=== PATIENT | female | born 1995 | race African-American/Black ===

== ENCOUNTER 2017-05-18 03:32 | Emergency (ER) | payer OTHER, MEDICAID ==
[~2017-05-18] VITALS: Ht 167.6 cm; Wt 53.1 kg
[~2017-05-18 03:32] MED LIST: ALBUPOW26; PREN-96 PO
[2017-05-18 04:52] LABS: Urine Bacteria NONE SEEN /hpf (None Seen); Urine Blood 3+ /uL (Negative); Urine WBC 388 /hpf (0 - 5)
[2017-05-18 04:53] LABS: Urine Specific Gravity 1.021 (1.001-1.035)
[2017-05-18 05:00] LABS: Basophils # (auto) 0 uL; Basophils % (auto) 0.5 % (0.0-2.0); Eosinophils # (auto) 0.6 uL; Eosinophils % (auto) 6.9 % (0.0-7.0); Hematocrit 35.5 % (36.0-46.0); Hemoglobin 11.6 g/dL (12.2-16.2); Lymphocytes # (auto) 2.6 uL; Lymphocytes % (auto) 30.2 % (10.0-50.0); Mean Corpuscular Hemoglobin 29.6 pg (28.0-32.0); Mean Corpuscular Hgb Conc. 32.7 g/dL (32.0-36.0); Mean Corpuscular Volume 90.4 fL (80.0-100.0); Monocytes # (auto) 0.5 uL; Monocytes % (auto) 6.1 % (0.0-12.0); Neutrophils # (auto) 4.9 uL; Neutrophils % (auto) 56.3 % (37.0-80.0); Platelet Count (auto) 252 10^3/uL (140-450); Red Blood Cells 3.93 10^6/uL (4.0-5.20); Red Cell Distribution Width 12.4 % (11.8-14.3); White Blood Cell 8.7 10^3/uL (4.4-10.8)
[2017-05-18] MEDS ORDERED: SODIUM CHLORIDE 0.9% 1,000 ML IV ONE (05:00)
[2017-05-18 05:16] LABS: Albumin 3.9 g/dL (3.4-5.0); BUN/Creatinine Ratio 19.3; Calcium 8.6 mg/dL (8.5-10.1); Potassium 3.6 mmol/L (3.5-5.1)
[2017-05-18 05:18] LABS: Bilirubin, Total 1.4 mg/dL (0.2-1.0)
[2017-05-18 09:41] VITALS: BP 104/57
[2017-05-18] MEDS ORDERED: METHYLERGONOVINE MALEATE 0.2 MG/ML AMP IM ONE ×2 (10:15→10:45)
== END 2017-05-18 10:20 | disposition home or self-care (01) ==
LOC: ER 03:43
DX: N93.8 Other specified abnormal uterine and vaginal bleeding (principal); N39.0 Urinary tract infection, site not specified
CPT/HCPCS: 36415; 76830; 76856; 80053; 81001; 81025; 84702; 85025; 96360; 96361; 96372; 99285; J2210; J7030

== ENCOUNTER 2017-08-25 02:54 | Emergency (ER) | payer MEDICAID, OTHER ==
[~2017-08-25] VITALS: Ht 167.6 cm; Wt 56.2 kg
[2017-08-25 03:08] VITALS: BP 107/65
[2017-08-25 03:46] LABS: Urine Bacteria NONE SEEN /hpf (None Seen); Urine Blood 1+ /uL (Negative); Urine Mucus FEW (None Seen); Urine WBC 2 /hpf (0 - 5)
[2017-08-25 04:19] LABS: Basophils # (auto) 0 uL; Basophils % (auto) 0.6 % (0.0-2.0); Eosinophils # (auto) 0.3 uL; Eosinophils % (auto) 5.2 % (0.0-7.0); Hematocrit 40.5 % (36.0-46.0); Hemoglobin 13.1 g/dL (12.2-16.2); Lymphocytes # (auto) 1.9 uL; Lymphocytes % (auto) 29.1 % (10.0-50.0); Mean Corpuscular Hemoglobin 28.6 pg (28.0-32.0); Mean Corpuscular Hgb Conc. 32.3 g/dL (32.0-36.0); Mean Corpuscular Volume 88.6 fL (80.0-100.0); Monocytes # (auto) 0.4 uL; Monocytes % (auto) 5.9 % (0.0-12.0); Neutrophils # (auto) 3.9 uL; Neutrophils % (auto) 59.2 % (37.0-80.0); Platelet Count (auto) 321 10^3/uL (140-450); Red Blood Cells 4.57 10^6/uL (4.0-5.20); Red Cell Distribution Width 12.3 % (11.8-14.3); White Blood Cell 6.6 10^3/uL (4.4-10.8)
[2017-08-25 04:39] LABS: Albumin 4.1 g/dL (3.4-5.0); BUN/Creatinine Ratio 13.6; Bilirubin, Total 0.9 mg/dL (0.2-1.0); Calcium 8.9 mg/dL (8.5-10.1); Potassium 4.4 mmol/L (3.5-5.1); Total Protein 7.6 g/dL (6.4-8.2)
== END 2017-08-25 06:18 | disposition left against medical advice (07) ==
LOC: ER 02:59
DX: R10.30 Lower abdominal pain, unspecified (principal); N93.9 Abnormal uterine and vaginal bleeding, unspecified; Z53.21 Procedure and treatment not carried out due to patient leaving prior to being seen by health care provider
CPT/HCPCS: 36415; 80053; 81001; 81025; 85025

== ENCOUNTER 2017-10-05 18:12 | Emergency (ER) | payer OTHER, MEDICAID ==
[~2017-10-05] VITALS: Ht 167.6 cm; Wt 57.2 kg
[2017-10-05 18:34] VITALS: BP 116/67
[2017-10-05] MEDS ORDERED: IPRATROPIUM BROM 0.5 MG/2.5ML INH SOL NEB ONE (19:30)
[2017-10-05] MEDS ORDERED: ALBUTEROL SULF 2.5 MG/0.5ML(0.5%) NEB SOLN NEB ONE (19:30)
== END 2017-10-05 20:05 | disposition home or self-care (01) ==
LOC: ER 18:12
DX: J45.909 Unspecified asthma, uncomplicated (principal); J02.9 Acute pharyngitis, unspecified
CPT/HCPCS: 94640